=== PATIENT | male | born 1960 | race Caucasian/White ===

== ENCOUNTER 2018-09-18 08:54 | Inpatient (IN) | payer OTHER ==
[~2018-09-18] VITALS: Ht 170.2 cm; Wt 90.7 kg
--- NOTE | 2018-09-18 08:54 | NUR ---
Patient BIBA BLS, transferred to bed 3. RN evaluating patient at bedside.
[2018-09-18 08:56] VITALS: BP 113/86
--- NOTE | 2018-09-18 09:00 | NUR ---
PT. BIB BLS FROM [facility] DUE TO SOB X 1 DAY. PT. STATES " I WASNT FEELING WELL AND I WAS SHORT OF BREATH I COULDNT EVEN LAY DOWN". PRODUCTIVE COUGH NOTED W REPORTED "PHLEGM". DENIES ANY FEVERS OR CHILLS. R SIDED CHEST WALL PAIN THAT IS NON RADIAITING AND SHARP /10. PURSED LIP BREATHING NOTED AND BLUE TINT TO LIPS. 02: 98 RA UPON ARRIVAL. LS: CLEAR THROUGHOUT. RR TACHYPNEIC. ABD HERNIA NOTED. DENIES ANY N/V/D. PT. HAS NO EDEMA PRESENT AT THIS TIME. ER MD MADE AWARE. SAFETY PRECAUTIONS IMPLEMENTED. WILL CONTINUE TO MONITOR.
--- NOTE | 2018-09-18 09:07 | NUR ---
Dr. Vásquez evaluating patient at bedside.
[2018-09-18] MEDS ORDERED: MORPHINE SULFATE 4 MG/ML SYR IVP ONE ×2 (09:15→23:00)
[2018-09-18] MEDS ORDERED: ONDANSETRON 4 MG/2 ML VIAL IVP ONE (09:15)
--- NOTE | 2018-09-18 09:32 | NUR ---
LAB AT BEDSIDE AT THIS TIME.
--- NOTE | 2018-09-18 09:37 | NUR ---
PT. UNABLE TO PROVIDE URINE SAMPLE AT THIS TIME, PROVIDED WITH A URINAL. ER MD VALDOVINOS MADE AWARE
[2018-09-18 09:41] LABS: BASOPHILS # (AUTO) 0.1 K/uL (0.00-0.22); BASOPHILS % (AUTO) 0.5 % (0.0-2.0); EOSINOPHILS # (AUTO) 0.1 K/uL (0-0.4); EOSINOPHILS % (AUTO) 0.7 % (0.0-4.0); HEMATOCRIT 46.5 % (36-52); HEMOGLOBIN 15.4 g/dL (12.0-18.0); LYMPHOCYTES % (AUTO) 9.2 % (20.5-51.1); MEAN CORPUSCULAR HEMOGLOBIN 30 pg (27-31); MEAN CORPUSCULAR HGB CONC 33 g/dL (33-37); MEAN CORPUSCULAR VOLUME 89.2 fL (80-94); MONOCYTES # (AUTO) 0.8 K/uL (0.8-1.0); MONOCYTES % (AUTO) 7.5 % (1.7-9.3); NEUTROPHILS % (AUTO) 82.1 % (42.2-75.2); PLATELET COUNT (AUTO) 259 K/uL (140-450); RED BLOOD CELL COUNT(AUTO) 5.21 MIL/uL (4.20-6.10); RED CELL DISTRIBUTION WIDTH 14.6 % (11.6-13.7); WHITE BLOOD COUNT (AUTO) 10.9 K/uL (4.8-10.8)
--- NOTE | 2018-09-18 09:48 | NUR ---
Note kennethone in EDM - 09/18/18 at 0951 by [facility] PT. STATES " I AM SHORT OF BREATH". LS: DIMISHED LOWER LOBES BILAT AND CRACKLES POSTERIOR UPPER LOBES. ER MD VALDOVINOS MADE AWARE. 2 L VIA NC INITIATED.
--- NOTE | 2018-09-18 09:51 | NUR ---
PT. STATES " I AM SHORT OF BREATH". LS: DIMISHED LOWER LOBES BILAT AND CRACKLES POSTERIOR UPPER LOBES. ER MD VALDOVINOS MADE AWARE. 2 L VIA NC INITIATED
--- NOTE | 2018-09-18 09:58 | NUR ---
B/P : 91/59. ER MD VALDOVINOS MADE AWARE.
[2018-09-18] MEDS ORDERED: NACL 0.9% 1,000 ML IV ONE (10:00)
[2018-09-18 10:06] LABS: ANION GAP 12.2 (8-16); CARBON DIOXIDE 25.8 mmol/L (21-32)
[2018-09-18 10:07] LABS: ALBUMIN 3.1 g/dL (3.4-5.0); CREATININE 1.6 mg/dL (0.7-1.3); PROTHROMBIN TIME 12.2 secs (10.8-13.4); TOTAL BILIRUBIN 3.9 mg/dL (0.0-1.0)
[2018-09-18] MEDS ORDERED: NACL 0.9% 500 ML IV ONE (10:40)
[2018-09-18] MEDS ORDERED: LEVOFLOXACIN 500 MG/D5W PREMIX 100 ML IV ONE (10:40)
--- NOTE | 2018-09-18 10:46 | NUR ---
ULTRASOUND AT BEDSIDE AT THIS TIME.
[2018-09-18] MEDS ORDERED: metroNIDAZOLE 500 MG/NS PREMIX 100 ML IV ONE (10:50)
[2018-09-18] MEDS ORDERED: KETOROLAC 30 MG/ML VIAL IVP ONE (10:50)
--- NOTE | 2018-09-18 11:12 | NUR ---
PT. RESTING COMFORTABLY IN BED, HOB ELEVATED. VSS. PT REPOSITIONED FOR COMFORT. WILL CONTINUE TO MONITOR.
[2018-09-18] MEDS ORDERED: ONDANSETRON 4 MG/2 ML VIAL IM/IVP PRN (11:40)
[2018-09-18] MEDS ORDERED: ACETAMINOPHEN 325 MG TAB PO PRN (11:40)
[2018-09-18] MEDS ORDERED: HYDROcodone/APAP 5/325 MG 1 TAB TAB PO PRN (11:40)
[2018-09-18] MEDS ORDERED: ZOLPIDEM 5 MG TAB PO PRN ×2 (11:40→22:40)
[2018-09-18] MEDS ORDERED: LORazepam 2 MG/ML VIAL IM/IVP PRN (11:40)
[2018-09-18] MEDS ORDERED: MORPHINE SULFATE 2 MG/ML SYR IVP PRN ×2 (11:40→12:20)
[2018-09-18] MEDS ORDERED: DOCUSATE SODIUM 100 MG GELCAP PO PRN (11:40)
[2018-09-18] MEDS ORDERED: MORPHINE SULFATE 2 MG/ML SYR IVP ONE (12:00)
[2018-09-18] MEDS ORDERED: KETOROLAC 30 MG/ML VIAL IM PRN (12:20)
--- NOTE | 2018-09-18 12:26 | NUR ---
Patient will be admitted to care of DR. ARMSTRONG . Admited to [facility] . Will go to room 112B. Belongings list completed. Report to BAR LYNN .
[2018-09-18 12:30] VITALS: BP 114/72
--- NOTE | 2018-09-18 12:30 | NUR ---
PATIENT WAS TRANSFERRED FROM ER. REPORT WAS GIVEN AT BEDSIDE. PATIENT AMBULATED TO BED, STEADY GAIT. VS WAS TAKEN. MRSA WAS SWABBED. PATIENT WAS AWAKE, ALERT. RESPIRATION EVEN, UNLABOR ON 2L NC. SKIN DRY AND WARM. IV PATENT AND INTACT. DENIED PAIN AT THIS TIME. PATIENT WAS ORIENTED ROOM, STAFF, AND CALL LIGHT. PLAN OF CARE WAS DISCUSSED WITH PATIENT. BED AT LOW POSITION, SIDE RAILS UP. CALL LIGHT WITHIN REACH
[2018-09-18] MEDS ORDERED: metroNIDAZOLE 500 MG/NS PREMIX 100 ML IV SCH (13:00)
[2018-09-18] MEDS ORDERED: ALBUTEROL SULFATE/IPRATROPIU 3 ML SOL IH PRN (13:00)
[2018-09-18] MEDS ORDERED: PIPER/TAZO 3.375GM/D5W PREMIX 50 ML IV SCH (13:00)
[2018-09-18] MEDS ORDERED: ALBUTEROL SULFATE/IPRATROPIU 3 ML SOL IH SCH (13:00)
[2018-09-18 13:19] LABS: MAGNESIUM 2.1 mg/dL (1.8-2.4)
[2018-09-18 13:20] LABS: THYROID STIMULATING HORMONE 1.61 uIU/mL (0.34-3.74)
--- NOTE | 2018-09-18 14:10 | NUR ---
PATIENT AWAKE, ALERT. RESPIRATION EVEN, UNLABOR ON 2L NC. COMPLAINED OF SOB, O2 WAS INCREASED TO 3L .
[2018-09-18] MEDS ORDERED: LISI10TA11 PO (14:15)
[2018-09-18] MEDS ORDERED: CLOP75TA55 PO (14:15)
[2018-09-18] MEDS ORDERED: CARV12.5 PO (14:15)
[2018-09-18] MEDS ORDERED: ASPI81CT89 PO (14:15)
[2018-09-18] MEDS ORDERED: SIMV20TA1 PO (14:15)
[2018-09-18] MEDS ORDERED: FURO-572 PO (14:15)
[2018-09-18] MEDS: DEXT 5% / NACL 0.45% 1,000 ML IV SCH (14:24)
[2018-09-18 14:44] LABS: APPEARANCE,URINE CLEAR (CLEAR); BILIRUBIN,URINE 1+ (NEGATIVE); BLOOD, URINE NEGATIVE (NEGATIVE); COLOR,URINE YELLOW (YELLOW); LEUKOCYTE ESTERASE ,URINE NEGATIVE (NEGATIVE); NITRITE, URINE NEGATIVE (NEGATIVE); UGLUCOSE NEGATIVE (NEGATIVE)
[2018-09-18 15:11] LABS: BARBITURATE, URINE NEGATIVE ng/ml (NEG <=200)
[2018-09-18 15:12] LABS: BENZODIAZEPINE, URINE NEGATIVE ng/mL (NEG <=200); CANNABINOID, URINE NEGATIVE ng/mL (NEG <=50); COCAINE, URINE NEGATIVE ng/mL (NEG <=300); OPIATE, URINE POSITIVE ng/mL (NEG <=2000); PHENCYCLIDINE SCREEN,URINE NEGATIVE ng/mL (NEG <=25)
[2018-09-18 16:00] VITALS: BP 102/64
--- NOTE | 2018-09-18 16:00 | NUR ---
PATIENT WAS AWAKE, ALERT. RESPIRATION EVEN, UNLABOR ON 3L. DENIED PAIN, SOB AT THIS TIME. NO DISTRESS NOTED. CALL LIGHT WITHIN REACH
[2018-09-18] MEDS: MORPHINE SULFATE 4 MG/ML SYR IVP PRN ×2 (17:13→21:46)
--- NOTE | 2018-09-18 17:17 | NUR ---
PATIENT COMPLAINED OF RIGHT SHOULDER PAIN 7/10, NON RADIATING, CONTINUOUS. MED WAS GIVEN PER ORDER
--- NOTE | 2018-09-18 18:30 | NUR ---
PATIENT WAS SLEEPING COMFORTABLY. RESPIRATION EVEN, UNLABOR ON 2L NC. IV PATENT AND INTACT. NO DISTRESS NOTED AT THIS TIME
[2018-09-18] MEDS: ALBUTEROL SULFATE/IPRATROPIU 3 ML SOL IH SCH (19:00)
--- NOTE | 2018-09-18 19:16 | NUR ---
ENDORSEMENT GIVEN TO EXPERIMENTAL PLASTICS FABRICATOR NURSE. PATIENT IS STABLE AT THIS TIME
--- NOTE | 2018-09-18 19:20 | NUR ---
RECEIVED FROM AM RN IN BED AWAKE AND ALERT. PT. ABLE TO VERBALIZE NEEDS WELL . CARE PLANS FOR THE NIGHT DISCUSSED WITH HIM. RE-ORIENTED TO CALL LIGHT USE FOR ANY HELP HE MAY NEED OR IF IN PAIN. ON 02 AT 2LPM/NC. IVF SITE TO LEFT HAND #22 INTACT AND NO INFILTRATION. DX. OF CHOLELITHIASIS. PT. NOTED PER CXR WITH PNA. ON IVF ABT. FOR HIDA SCAN AND NPO MIDNIGHT PER AM RN REPORT. AFEBRILE.
[2018-09-18 20:29] VITALS: BP 110/68
[2018-09-18] MEDS: SIMVASTATIN 20 MG TAB PO SCH (20:42)
[2018-09-18] MEDS: metroNIDAZOLE 500 MG/NS PREMIX 100 ML IV SCH (20:42)
[2018-09-18] MEDS: CARVEDILOL 12.5 MG TAB PO SCH (20:43)
[2018-09-18 20:52] VITALS: BP 114/74
--- NOTE | 2018-09-18 20:59 | NUR ---
REMINDED PT. OF NPO MIDNIGHT STATUS. "OK"
--- NOTE | 2018-09-18 21:00 | NUR ---
PT. WAS ON BREATHING TREATMENT AN HAD AN EPISODE OF ANXIETY AFTER. REMINDED TO TAKE IT EASY AND BREATH SLOWLY. ON AT 2 LPM/NC. "OK"
--- NOTE | 2018-09-18 21:01 | NUR ---
DRINKING ORANGE JUICE AT THIS TIME AND HAVING SNACK REQUESTED BY PT. RT NPO MIDNIGHT .
--- NOTE | 2018-09-18 22:03 | NUR ---
PT'S CAME BACK FROM RADIOLOGY CT SCAN WITH CONTRAST . LASIX GIVEN PER AM NURSE ENDORSEMENT SO NOT TO HAVE FAINTING SPELL OCCURRENCE AGAIN WITH PT.
[2018-09-18 22:52] VITALS: BP 122/78
[2018-09-18] MEDS ORDERED: METHOCARBAMOL 500 MG TAB PO ONE (23:00)
[2018-09-18] MEDS: FUROSEMIDE 20 MG/2 ML VIAL IVP SCH (23:03)
--- NOTE | 2018-09-18 23:03 | NUR ---
PT. WOKE UP FROM SLEEPING AND COMPLAINED OF PAIN IN THE ABDOMEN TO RIGHT SIDE. INFORMED MD LAIRDE VACUUM COOKER OPERATOR. WITH NEW ORDER TO GIVE 2 MG IVP MORPHINE ONCE. MEDICATED ORDERED. PT. MADE AWARE OF NEW GIVEN ORDER.
--- NOTE | 2018-09-18 23:35 | NUR ---
PT. SLEEPING AT THIS TIME. SNORING. 02 AT 2LPM/NC. NO SOB. NO RESTLESSNESS.
[2018-09-19] MEDS: metroNIDAZOLE 500 MG/NS PREMIX 100 ML IV SCH ×3 (04:50→21:40)
--- NOTE | 2018-09-19 05:00 | NUR ---
PT. WENT RESTROOM AND CAME OUT UPSET. IVF SITE LEAKING. DISCONTINUED IT. ASKED ME FOR PAIN RELIEVER AND REMINDED HIM I TOLD HIM EARLIER THAT PER HIDA SCAN MIXER ATTENDANT AFTER 3 AM NO MORE NARCOTICS. PT. REFUSED TO BELIEVE ME. HE TOLD ME THAT I ONLY GIVE HALF BOTTLE AND NOT GIVING IT ALL X 2. EXPLAINED THAT THE BOTTLE CONTAINS 4 MG AND ONLY 2 MG WAS ORDERED. REFUSED TO LISTEN. STILL ANGRY AND UPSET. INFORMED Portia GUARDADO NO FURTHER ORDERS. AWARE. NEW IVF LINE INSERTED BY CHARGE NURSE TO RIGHT HAND #22.
[2018-09-19] MEDS: DEXT 5% / NACL 0.45% 1,000 ML IV SCH (06:23)
--- NOTE | 2018-09-19 07:36 | NUR ---
RECEIVED FROM PM RN IN BED AWAKE AND ALERT. PT ABLE TO VERBALIZE NEEDS WELL . CARE PLANS FOR THE DAY DISCUSSED WITH HIM. RE-ORIENTED TO CALL LIGHT USE FOR ANY HELP HE MAY NEED OR IF IN PAIN. ON 02 AT 2L/NC. IVF SITE TO LEFT HAND #22 INTACT AND NO INFILTRATION. DX. OF CHOLELITHIASIS. PT. NOTED PER CXR WITH PNA. ON IVF ABX. HIDA SCAN PENDING AND NPO AFTER MIDNIGHT PER PM RN REPORT. AFEBRILE. ALL NEEDS MET AT THIS TIME.
[2018-09-19] MEDS: ALBUTEROL SULFATE/IPRATROPIU 3 ML SOL IH SCH ×3 (07:43→20:05)
[2018-09-19 08:00] VITALS: BP 121/86
[2018-09-19 08:13] LABS: CHOL/HDL RATIO 3.1 (1-4.5)
--- NOTE | 2018-09-19 08:31 | NUR ---
PATIENT HAS BEEN SCREENED AND CATEGORIZED MODERATE NUTRITION RISK. PATIENT WILL BE SEEN WITHIN 3-5 DAYS OF ADMISSION. 09/20/18 09/22/[address]
[2018-09-19] MEDS ORDERED: CARVEDILOL 12.5 MG TAB PO SCH (09:00)
[2018-09-19 09:25] LABS: BASOPHILS % (AUTO) 0.5 % (0.0-2.0); EOSINOPHILS # (AUTO) 0.1 K/uL (0-0.4); EOSINOPHILS % (AUTO) 1.4 % (0.0-4.0); HEMATOCRIT 45.8 % (36-52); HEMOGLOBIN 14.6 g/dL (12.0-18.0); LYMPHOCYTES # (AUTO) 0.9 K/uL (2.0-11.5); MEAN CORPUSCULAR HEMOGLOBIN 29 pg (27-31); MEAN CORPUSCULAR HGB CONC 32 g/dL (33-37); MEAN CORPUSCULAR VOLUME 90.8 fL (80-94); MONOCYTES # (AUTO) 0.9 K/uL (0.8-1.0); MONOCYTES % (AUTO) 10.1 % (1.7-9.3); NEUTROPHILS # (AUTO) 6.6 K/uL (1.8-7.7); PLATELET COUNT (AUTO) 226 K/uL (140-450); RED BLOOD CELL COUNT(AUTO) 5.04 MIL/uL (4.20-6.10); RED CELL DISTRIBUTION WIDTH 15.1 % (11.6-13.7); WHITE BLOOD COUNT (AUTO) 8.5 K/uL (4.8-10.8)
[2018-09-19 09:28] LABS: ANION GAP 8.6 (8-16); CARBON DIOXIDE 31.1 mmol/L (21-32); CREATININE 1.6 mg/dL (0.7-1.3); POTASSIUM 4.7 mmol/L (3.5-5.1)
--- NOTE | 2018-09-19 09:54 | NUR ---
PT SLEEPING IN BED. NO SIGNS OF PAIN. ALL NEEDS MET AT THIS TIME. CALL LIGHT WITHIN REACH. BED IN LOW POSITION.
[2018-09-19] MEDS: FUROSEMIDE 20 MG/2 ML VIAL IVP SCH ×2 (11:13→23:03)
[2018-09-19] MEDS: LACTOBACILLUS RHAMNOSUS GG 1 EACH CAP PO SCH (11:14)
[2018-09-19] MEDS: LISINOPRIL 5 MG TAB PO SCH (11:15)
[2018-09-19] MEDS: CARVEDILOL 12.5 MG TAB PO SCH ×2 (11:16→21:38)
[2018-09-19] MEDS: ASPIRIN 81 MG TAB.CHEW PO SCH (11:16)
--- NOTE | 2018-09-19 11:23 | NUR ---
PT RESTING IN BED ON CELL PHONE. NO SIGNS OF PAIN. PT VERBALIZES NO PAIN. CALL LIGHT WITHIN REACH. BED IN LOW POSITION.
[2018-09-19] MEDS ORDERED: NACL 0.9% 500 ML IV SCH (13:05)
[2018-09-19] MEDS: HYDROmorphone 1 MG/ML AMP IVP PRN ×2 (13:26→22:10)
--- NOTE | 2018-09-19 13:26 | NUR ---
GAVE DILAUDID FOR PAIN OF 10/10. WILL MONITOR PT CLOSELY FOR CHANGES IN VITAL SIGNS.
[2018-09-19 16:00] VITALS: BP 114/69
--- NOTE | 2018-09-19 18:00 | NUR ---
ROCEPHIN SCHEDULED FOR 1400 GIVEN.
[2018-09-19] MEDS: POTASSIUM CHL 20 MEQ/NACL 0.9% 1,000 ML IV SCH (18:24)
--- NOTE | 2018-09-19 19:34 | NUR ---
ENDORSED PT TO E D TECH FOR CONTINUITY OF CARE. PT IN STABLE CONDITION.
--- NOTE | 2018-09-19 19:35 | NUR ---
RECEIVED FROM PM RN IN BED AWAKE AND ALERT. PT ABLE TO VERBALIZE NEEDS WELL . ON 02 AT 2L/NC. IVF SITE TO LEFT HAND #22 INTACT INFUSING POTASSIUM CHLORIDE MIXED WITH .9 NS 1000ML @ 50 ML/HR, NO INFILTRATION. ON IVF ABX. PT ON CARDIAC DIET. PT ON TELE. PT PLACED ON FALL PREC, BED LOWEST POSITION, CALL LIGHT WITHIN REACH.
[2018-09-19 20:00] VITALS: BP 114/69
[2018-09-19] MEDS ORDERED: NACL 0.9% 1,000 ML IV SCH (21:45)
[2018-09-19] MEDS: SIMVASTATIN 20 MG TAB PO SCH (21:46)
--- NOTE | 2018-09-19 22:00 | NUR ---
PT WANTED TO GO AMA, HE SIGNED AMA FORM. BEC. PT WENT TO BATHROOM, WAS A LITTLE DIZZY, BUT NO FALL. SO HE CHANGED HIS MIND AND AGAIN RECONSIDERED HOSPITALIZATION. HE SAID TO CONTINUE WITH HOSPITALIZATION.
--- NOTE | 2018-09-19 22:10 | NUR ---
C/O OF PAIN 04/17 ABD. PAIN R SIDE.PER PT. PT GIVEN DILAUDID ORDERED
--- NOTE | 2018-09-19 22:14 | NUR ---
PT'S IV WAS TAKEN OFF BECAUSE DUE TO AMA, BUT REINSERTED ANOTHER IV LINE ON THE R AC WITH G 20.
--- NOTE | 2018-09-19 22:30 | NUR ---
PT LEFT FOR CT SCAN W/ CONTRAST ABDOMEN. PT VITAL SIGNS WERE STABLE. RR 14 WNL, ASSESSED BY RESPIRATORY THERAPIST. RADIOLOGY ASKED PERMISSION FROM BEFORE TRANPORTING PT TO RADIOLOGY SINCE PT EXPERIENCED DIZZINESS EARLIER TO GO AHEAD W. THE PROCEDURE. DR. HI.
--- NOTE | 2018-09-19 23:03 | NUR ---
LASIX NOT ADMINISTERED. DR. LAIRD AWARE
--- NOTE | 2018-09-19 23:03 | NUR ---
LASIX IV PUSH WAS WASTED, DID NOT ADMINISTER TO PT DUE TO BP DECREASED AT 114/69 [facility].
[2018-09-20] VITALS: BP 115/69
[2018-09-20] MEDS: MORPHINE SULFATE 4 MG/ML SYR IVP PRN ×2 (00:34→06:23)
[2018-09-20 04:00] VITALS: BP 115/69
[2018-09-20] MEDS: metroNIDAZOLE 500 MG/NS PREMIX 100 ML IV SCH ×2 (06:00→12:33)
[2018-09-20] MEDS: ALBUTEROL SULFATE/IPRATROPIU 3 ML SOL IH SCH ×2 (07:18→13:24)
[2018-09-20 07:22] LABS: BASOPHILS % (AUTO) 0.4 % (0.0-2.0); EOSINOPHILS # (AUTO) 0.1 K/uL (0-0.4); EOSINOPHILS % (AUTO) 1.4 % (0.0-4.0); HEMATOCRIT 42.2 % (36-52); HEMOGLOBIN 13.7 g/dL (12.0-18.0); LYMPHOCYTES # (AUTO) 0.9 K/uL (2.0-11.5); LYMPHOCYTES % (AUTO) 13.4 % (20.5-51.1); MEAN CORPUSCULAR HEMOGLOBIN 30 pg (27-31); MEAN CORPUSCULAR HGB CONC 33 g/dL (33-37); MEAN CORPUSCULAR VOLUME 90.3 fL (80-94); MONOCYTES # (AUTO) 0.7 K/uL (0.8-1.0); MONOCYTES % (AUTO) 10.2 % (1.7-9.3); NEUTROPHILS # (AUTO) 4.8 K/uL (1.8-7.7); NEUTROPHILS % (AUTO) 74.6 % (42.2-75.2); PLATELET COUNT (AUTO) 205 K/uL (140-450); RED BLOOD CELL COUNT(AUTO) 4.67 MIL/uL (4.20-6.10); RED CELL DISTRIBUTION WIDTH 14.5 % (11.6-13.7); WHITE BLOOD COUNT (AUTO) 6.5 K/uL (4.8-10.8)
--- NOTE | 2018-09-20 07:26 | NUR ---
RECEIVED FROM PM RN IN BED AWAKE AND ALERT. PT ABLE TO VERBALIZE NEEDS WELL . ON 02 AT 2L/NC. IVF SITE TO RIGHT AC 20G INFUSING POTASSIUM CHLORIDE MIXED WITH .9 NS 1000ML @ 50 ML/HR, NO INFILTRATION. ON IVF ABX. PT ON CARDIAC DIET. PT ON TELE. PT PLACED ON FALL PRECAUTIONS, BED LOWEST POSITION, CALL LIGHT WITHIN REACH.
[2018-09-20 07:34] LABS: ANION GAP 13.1 (8-16); CARBON DIOXIDE 25.4 mmol/L (21-32); CREATININE 1.2 mg/dL (0.7-1.3); POTASSIUM 4.5 mmol/L (3.5-5.1)
[2018-09-20 08:00] VITALS: BP 121/83
[2018-09-20] MEDS: FUROSEMIDE 20 MG/2 ML VIAL IVP SCH (08:22)
[2018-09-20] MEDS: LISINOPRIL 5 MG TAB PO SCH (08:22)
[2018-09-20] MEDS: LACTOBACILLUS RHAMNOSUS GG 1 EACH CAP PO SCH (08:23)
[2018-09-20] MEDS: ASPIRIN 81 MG TAB.CHEW PO SCH (08:23)
[2018-09-20] MEDS: CARVEDILOL 12.5 MG TAB PO SCH (08:24)
--- NOTE | 2018-09-20 08:36 | NUR ---
ADMINISTERED MORNING MEDICATIONS TO PT. TOLERATED THEM WELL. PT STATES ALL NEEDS MET AT THIS TIME. BREAKFAST TRAY GIVEN TO PT. CALL LIGHT WITHIN REACH. BED IN LOW POSITION.
[2018-09-20] MEDS ORDERED: HYDROcodone/APAP 7.5/325 MG 1 TAB PO PRN (09:35)
[2018-09-20] MEDS ORDERED: LIP80 PO (10:53)
[2018-09-20] MEDS ORDERED: CARV6.25 PO ×2 (10:53→10:56)
[2018-09-20] MEDS ORDERED: FURO-570 PO (10:53)
[2018-09-20] MEDS ORDERED: DOCU-299 PO (10:56)
[2018-09-20] MEDS ORDERED: AZIT250T3 PO (10:56)
[2018-09-20] MEDS ORDERED: HYDR-5123 PO (10:56)
[2018-09-20] MEDS ORDERED: EPLE25TA4 PO (11:17)
[2018-09-20] MEDS ORDERED: CLOPIDOGREL 75 MG TAB PO SCH (11:30)
--- NOTE | 2018-09-20 11:35 | NUR ---
PT RESTING IN BED. NO SIGNS OF SOB OR PAIN REPORTED. BED IN LOW POSITION, CALL LIGHT WITHIN REACH. WILL CONTINUE TO MONITOR FREQUENTLY.
[2018-09-20] MEDS: POTASSIUM CHL 20 MEQ/NACL 0.9% 1,000 ML IV SCH (11:55)
--- NOTE | 2018-09-20 13:20 | NUR ---
PT RESTING IN BED AWAITING TRANSFER. PT REQUESTS FOR A TAXI TO BE CALLED FOR HIS BLENDER SNUFF. PT NOTIFIED THAT HE WILL BE RESPONSIBLE OF THE CHARGES. PT VERBALIZED UNDERSTANDING. ALL OTHER NEEDS MET. CALL LIGHT WITHIN REACH, BED IN LOW POSITION. WILL CALL TO ARRANGE TAXI BLENDER SNUFF.
--- NOTE | 2018-09-20 13:30 | NUR ---
CALLED [facility] FOR PT. PICKUP. AWAITING 45 MINUTE WINDOW FOR PT DISCHARGE.
[2018-09-20 14:13] VITALS: BP 121/83
--- NOTE | 2018-09-20 14:15 | NUR ---
PT DISCHARGE DONE AND READY TO SIGN BUT PT IS NOW REFUSING DISCHARGE. DR. SUAZO NOTIFIED AND SPOKE WITH PT. PT STATES HE WANTS TO WAIT UNTIL 1800 TO GO HOME.
--- NOTE | 2018-09-20 16:15 | NUR ---
PT DISCHARGED HOME VIA PRIVATE VEHICLE. PT IV REMOVED WITH TIP INTACT. ID BAND REMOVED. PT IN STABLE CONDITION. NO REPORTS OF PAIN OR SOB. PT DISCHARGE PAPERWORK/TEACHING/INSTRUCTIONS GIVEN AND SIGNED. PT VERBALIZED UNDERSTANDING. PT TOOK ALL PERSONAL BELONGINGS. PRESCRIPTIONS GIVEN TO PT. PT LEFT IN STABLE CONDITION.
== END 2018-09-20 16:11 | disposition home or self-care (01) | DRG 177 ==
LOC: MED 08:54 → MTU 11:43
PROVIDERS: ADMIT General Practice; ATTEND General Practice
DX: J69.0 Pneumonitis due to inhalation of food and vomit (principal); N17.0 Acute kidney failure with tubular necrosis; I50.43 Acute on chronic combined systolic (congestive) and diastolic (congestive) heart failure; E44.0 Moderate protein-calorie malnutrition; E87.2 Acidosis; G90.8 Other disorders of autonomic nervous system; K80.20 Calculus of gallbladder without cholecystitis without obstruction; F17.210 Nicotine dependence, cigarettes, uncomplicated; I25.10 Atherosclerotic heart disease of native coronary artery without angina pectoris; D72.829 Elevated white blood cell count, unspecified; K21.9 Gastro-esophageal reflux disease without esophagitis; E66.9 Obesity, unspecified; K42.9 Umbilical hernia without obstruction or gangrene; E87.8 Other disorders of electrolyte and fluid balance, not elsewhere classified; R73.9 Hyperglycemia, unspecified; K82.8 Other specified diseases of gallbladder; F19.10 Other psychoactive substance abuse, uncomplicated; D18.03 Hemangioma of intra-abdominal structures; E78.5 Hyperlipidemia, unspecified; I11.0 Hypertensive heart disease with heart failure; Z68.31 Body mass index [BMI] 31.0-31.9, adult; Z95.1 Presence of aortocoronary bypass graft; Z95.5 Presence of coronary angioplasty implant and graft; Z79.899 Other long term (current) drug therapy; Z79.82 Long term (current) use of aspirin; Z79.02 Long term (current) use of antithrombotics/antiplatelets; Z59.0 Homelessness; Z83.3 Family history of diabetes mellitus; Z82.49 Family history of ischemic heart disease and other diseases of the circulatory system; I25.2 Old myocardial infarction
CPT/HCPCS: 36415; 70450; 71045; 72194; 76705; 78445; 80048; 80053; 80305; 81003; 83036; 83605; 83690; 83735; 83880; 84100; 84134; 84443; 84484; 85025; 85610; 85730; 87040; 87081; 93005; 93880; 94640; 96361; 96365; 96375; 99285; A9510; J0696; J1170; J1885; J1940; J1956; J2270; J2405; J2543; J3490; J7030; J7060; J7620; Q0092